=== PATIENT | female | born 1955 | race African-American/Black ===

== ENCOUNTER 2017-01-10 19:58 | Emergency (ER) | payer OTHER ==
[~2017-01-10] VITALS: Ht 167.6 cm; Wt 104.3 kg
[2017-01-10] MEDS ORDERED: NORFLEX100 MG PO (20:34)
[2017-01-10] MEDS ORDERED: NAPROSYN500 MG PO (20:34)
[2017-01-10 20:40] VITALS: BP 180/99
== END 2017-01-10 20:58 | disposition home or self-care (01) ==
LOC: ER 19:58
DX: S16.1XXA Strain of muscle, fascia and tendon at neck level, initial encounter (principal); I10 Essential (primary) hypertension; G62.9 Polyneuropathy, unspecified; V43.62XA Car passenger injured in collision with other type car in traffic accident, initial encounter; Y93.I9 Activity, other involving external motion; Y92.488 Other paved roadways as the place of occurrence of the external cause; Y99.9 Unspecified external cause status